=== PATIENT | male | born 1995 | race American Indian/Alaskan Native ===

== ENCOUNTER 2018-08-24 22:23 | Emergency (ER) | payer OTHER ==
--- NOTE | 2018-08-24 23:33 | Cat Scan Report ---
PROCEDURE: CT head without contrast. TECHNIQUE: Axial scans were done through the brain without intravenous contrast. HISTORY: headache and neck pain COMPARISONS: None. FINDINGS: The ventricles are normal in size. The rees matter and white matter appear normal. There are no mass lesions. There is no intracranial hemorrhage. The calvarium appears intact. The mastoid air cells and paranasal sinuses are clear as far as visualized. IMPRESSION: Normal study. This document is electronically signed by Delfino Moses MD., Aug 24 2018 11:31:38 PM ET
--- NOTE | 2018-08-24 23:40 | Cat Scan Report ---
PROCEDURE: CT cervical spine without contrast. TECHNIQUE: Computerized tomography of the cervical spine was performed from the skull base to T1 wit hout contrast material. CT DOSE LENGTH PRODUCT: 433.3 mGycm HISTORY: Headache and neck pain. COMPARISONS: None. FINDINGS: The cervical vertebrae have normal height and alignment. There are no fractures. There is no subluxat ion. The disc spaces appear normal. The spinal canal is widely patent. The facet joints appear normal . The neural foramina are widely patent. The prevertebral soft tissues have normal thickness. IMPRESSION: Normal study. This document is electronically signed by Delfino Moses MD., Aug 24 2018 11:38:01 PM ET
[2018-08-25] MEDS ORDERED: FLEXERIL PO ONE (00:38)
[2018-08-25] MEDS ORDERED: TYLENOL PO ONE ×2 (00:38→00:47)
[2018-08-25] MEDS ORDERED: ZOFRAN ODT PO ONE (00:39)
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
[2018-08-25 01:42] VITALS: BP 90/60
== END 2018-08-25 01:54 | disposition home or self-care (01) ==
LOC: ED 22:23
DX: S00.03XA Contusion of scalp, initial encounter (principal); M62.830 Muscle spasm of back; R51 Headache; Y08.89XA Assault by other specified means, initial encounter; Y93.89 Activity, other specified; Y92.89 Other specified places as the place of occurrence of the external cause; Y99.8 Other external cause status
CPT/HCPCS: 70450; 72125; Q0162

== ENCOUNTER 2018-12-13 05:51 | Emergency (ER) | payer SELFPAY ==
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
[2018-12-13] MEDS ORDERED: XYLOCAINE 1% 20 mL INFILTRATI ONE (07:20)
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
[2018-12-13] MEDS ORDERED: ZOFRAN ODT PO ONE (08:05)
[2018-12-13] MEDS ORDERED: NORCO 5/325 PO ONE (08:05)
[2018-12-13] MEDS ORDERED: ZOFRAN ODT ONE (08:21)
[2018-12-13] MEDS ORDERED: NORCO 5/325 ONE (08:21)
[2018-12-13 09:24] VITALS: BP 112/64
== END 2018-12-13 09:30 | disposition home or self-care (01) ==
LOC: ED 05:51
DX: S01.91XA Laceration without foreign body of unspecified part of head, initial encounter (principal); Y04.8XXA Assault by other bodily force, initial encounter; Y93.89 Activity, other specified; Y92.89 Other specified places as the place of occurrence of the external cause; Y99.8 Other external cause status; Z79.899 Other long term (current) drug therapy
CPT/HCPCS: 70450; 70486; 72125; Q0162

== ENCOUNTER 2019-08-14 21:53 | Emergency (ER) | payer OTHER ==
[2019-08-14 22:39] VITALS: BP 117/69
== END 2019-08-14 23:00 | disposition left against medical advice (07) ==
LOC: ED 21:53
DX: R51 Headache (principal); Z53.21 Procedure and treatment not carried out due to patient leaving prior to being seen by health care provider